=== PATIENT | female | born 1980 | race Caucasian/White ===

== ENCOUNTER 2016-11-07 09:10 | Emergency (ER) | payer OTHER ==
[2016-11-07 09:34] VITALS: BP 114/71
--- NOTE | 2016-11-07 09:58 | UC ---
Complaint Female HPI - HPI Summary HPI Summary: 36 y/o female presents to the urgent care c/o frequency on urination and a little bit of burning for the past week. Pt states mild pelvic discomfort. She took her temp yesterday and was 99.4F. She is concern since she had a Kidney infection 2 years ago. She wants to make sure she doesn't have a UTI. She also had some sensible nipples lately. Pt denies vaginal discharge, HX of STD's fever, SOB, chest pain, N/V/D. pelvic or abdominal pain. LMP: many years ago since she has a Pituitary tumor. "U. - History Of Current Complaint Chief Complaint: UCGU Stated Complaint: URINARY COMPLAINT Time Seen by Provider: 11/07/16 09:56 Hx Obtained From: Patient Hx Last Menstrual Period: "I don't get my period [pituitary tumor]." ?: No Onset/Duration: Gradual Onset, Lasting Days, Still Present Timing: Constant, Lasting Days Severity Initially: Mild Severity Currently: Mild Pain Intensity: 2 Pain Scale Used: 0-10 Numeric Character: Burning - mild with frequency on urination Associated Signs And Symptoms: Positive: Negative. Negative: Fever, Back Pain, Vaginal Bleeding/Discharge, Vaginal Discharge, Nausea, Vomiting(# Of Episodes =) , Genital Swelling, Genital Blisters - Risk Factors Ectopic Risk Factor: Negative Ovarian Torsion Risk Factor: Negative - Allergies/Home Medications Allergies/Adverse Reactions: Allergies Allergy/AdvReac Type Severity Reaction Status Date / Time No Known Allergies Allergy Verified 11/07/16 09:28 Home Medications: Home Medications Ascorbic Acid TAB* [Vitamin C TAB*] 1,000 mg PO DAILY PRN 11/07/16 [History Confirmed 11/07/16] Escitalopram Oxalate [Lexapro 10 mg] 10 mg PO DAILY 11/07/16 [History Confirmed 11/07/16] PMH/Surg Hx/FS Hx/Imm Hx Previously Healthy: Yes Other Endocrine History: Pitutary tumor - Surgical History Surgical History: Yes Surgery Procedure, Year, and Place: Appendectomy, ; Left Foot Fracture/Screw, ~ - Family History Known Family History: Positive: Hypertension, Diabetes Family History: thyroid problems - Social History Occupation: Employed Full-time Lives: With Family Alcohol Use: Occasionally Substance Use Type: None Smoking Status (MU): Heavy Every Day Tobacco Smoker Type: Cigarettes Amount Used/How Often: 1 PPD Length of Time of Smoking/Using Tobacco: Since Age 16 Review of Systems Constitutional: Negative Skin: Negative Eyes: Negative ENT: Negative Respiratory: Negative Cardiovascular: Negative Gastrointestinal: Negative Genitourinary: Dysuria, Frequency Motor: Negative Neurovascular: Negative Musculoskeletal: Negative Neurological: Negative Psychological: Negative All Other Systems Reviewed And Are Negative: Yes Physical Exam Triage Information Reviewed: Yes Appearance: Well-Appearing, No Pain Distress, Well-Nourished, Obese Vital Signs: Initial Vital Signs Temp 98.5 F 11/07/16 09:24 Pulse 86 11/07/16 09:24 Resp 16 11/07/16 09:24 BP 114/71 11/07/16 09:24 Pulse Ox 100 11/07/16 09:24 Vital Signs Reviewed: Yes Eye Exam: Normal Eyes: Positive: Conjunctiva Clear - PERRLA, EOMI fundi grossly normal ENT Exam: Normal ENT: Positive: Normal ENT inspection, Hearing grossly normal, Pharynx normal, TMs normal Dental Exam: Normal Neck exam: Normal Neck: Positive: Supple, Nontender, No Lymphadenopathy Respiratory Exam: Normal Respiratory: Positive: Chest non-tender, Lungs clear, Normal breath sounds Cardiovascular Exam: Normal Cardiovascular: Positive: RRR, No Murmur, Pulses Normal Abdominal Exam: Normal Abdomen Description: Positive: Nontender, No Organomegaly, Soft. Negative: CVA Tenderness (R), CVA Tenderness (L) Bowel Sounds: Positive: Present Musculoskeletal Exam: Normal Musculoskeletal: Positive: Strength Intact, ROM Intact, No Edema Neurological Exam: Normal Psychological Exam: Normal Skin Exam: Normal Complaint Female Dx - Course Course Of Treatment: 36 y/o female presents to the urgent care c/o frequency on urination and a little bit of burning for the past week. Pt states mild pelvic discomfort. She took her temp yesterday and was 99.4F. She is concern since she had a Kidney infection 2 years ago. She wants to make sure she doesn't have a UTI. She also had some sensible nipples lately. Pt denies vaginal discharge, HX of STD's fever, SOB, chest pain, N/V/D. pelvic or abdominal pain. LMP: many years ago since she has a Pituitary tumor.HX obtained. UA ordered, Result: negative, test: negative. PE: WNL. Pt Rx Pyridium PO to alleviate symptoms. Advised to increase fluid intake and if not resolution of symptoms to f/u with her PCP. Pt understood and agreed - Differential Dx/Diagnosis Differential Diagnosis/HQI/PQRI: Cervicitis, Pelvic Inflammatory Disease, , Renal Colic, Ureteral Stone, Urinary Tract Infection Provider Diagnoses: 1- Dysuria Discharge - Discharge Plan Condition: Stable Disposition: HOME Prescriptions: Phenazopyridine TAB* [Pyridium 100 mg TAB*] 100 mg PO TID #6 tab Patient Education Materials: Dysuria (ED) Referrals: Darius Franklin PA [Primary Care Provider] - If Needed Additional Instructions: 1- Please take the medication as directed if your urinary symptoms continue 2- Increase fluid intake or drink cranberry juice. If not improvement of symptoms please f/u with your PCP for further management.
== END 2016-11-07 10:15 | disposition home or self-care (01) ==
LOC: UCCORT 09:10
DX: R30.0 Dysuria (principal); Z32.02 Encounter for pregnancy test, result negative; F17.200 Nicotine dependence, unspecified, uncomplicated
CPT/HCPCS: 81003; 84702; 99202; G0463

== ENCOUNTER 2017-05-29 15:01 | Emergency (ER) | payer OTHER ==
[2017-05-29 15:35] VITALS: BP 121/74
--- NOTE | 2017-05-29 15:48 | UC ---
UC General HPI - HPI Summary HPI Summary: PT IS C/O LOW BACK ACHE, LOWER ABDOMINAL CRAMPING AND SOME DIARRHEA WHICH SHE DESCRIBES SOFT BM'S. PT ALSO C/O FREQUENT URINATION WITH DISCOMFORT AND URGENCY. SHE STATES HAS HAD INFECTION IN KIDNEY ONCE SO WANTS TO ENSURE NOT THAT. NO VAGINAL D/C, BLEEDING, CONCERN FOR PELVIC INFECTION OR . PT REPORTS FEELING WARM BUT DENIES FEVER. - History of Current Complaint Chief Complaint: UCGU Stated Complaint: URINARY W/BACK PAIN Time Seen by Provider: 05/29/17 15:40 Hx Obtained From: Patient Hx Last Menstrual Period: last week Onset/Duration: Gradual Onset, Other - "FEW DAYS AGO" Pain Intensity: 5 Aggravating: NOTHING Alleviating: NOTHING Associated Signs & Symptoms: Positive: Diarrhea, Dysuria. Negative: Abdominal Pain, Diaphoresis, Fever, Nausea, Vomiting - Allergy/Home Medications Allergies/Adverse Reactions: Allergies Allergy/AdvReac Type Severity Reaction Status Date / Time No Known Allergies Allergy Verified 05/29/17 15:29 PMH/Surg Hx/FS Hx/Imm Hx - Additional Past Medical History Additional PMH: pyelonephritis - Surgical History Surgical History: Yes Surgery Procedure, Year, and Place: Appendectomy, 2013, [place]; Left Foot Fracture/Screw, ~2001, [place] - Family History Known Family History: Positive: Hypertension, Diabetes Family History: thyroid problems - Social History Lives: With Family Alcohol Use: Occasionally Substance Use Type: None Smoking Status (MU): Heavy Every Day Tobacco Smoker Type: Cigarettes Amount Used/How Often: 1 PPD Length of Time of Smoking/Using Tobacco: Since Age 16 - Immunization History Vaccination Up to Date: Yes Review of Systems Constitutional: Negative Skin: Negative Eyes: Negative ENT: Negative Respiratory: Negative Cardiovascular: Negative Gastrointestinal: Diarrhea Genitourinary: Dysuria, Frequency, Urgency Motor: Negative Neurovascular: Negative Musculoskeletal: Negative Neurological: Negative Psychological: Negative Is Patient Immunocompromised?: No All Other Systems Reviewed And Are Negative: Yes Physical Exam Triage Information Reviewed: Yes Appearance: Well-Appearing Vital Signs: Initial Vital Signs Temp 97.7 F 05/29/17 15:30 Pulse 86 05/29/17 15:30 Resp 16 05/29/17 15:30 BP 121/74 05/29/17 15:30 Pulse Ox 100 05/29/17 15:30 Vital Signs Reviewed: Yes Eyes: Positive: Conjunctiva Clear ENT: Positive: Pharynx normal, TMs normal. Negative: Nasal congestion, Nasal drainage Neck: Positive: Supple, Nontender, No Lymphadenopathy Respiratory: Positive: Lungs clear, Normal breath sounds Cardiovascular: Positive: RRR, No Murmur, Pulses Normal Abdomen Description: Positive: Nontender, No Organomegaly, Soft. Negative: CVA Tenderness (R), CVA Tenderness (L), Distended, Guarding Bowel Sounds: Positive: Present Neurological: Positive: Alert Psychological: Positive: Age Appropriate Behavior Skin Exam: Normal Diagnostics - Laboratory Diagnostic Studies Completed/Ordered: U/A=UNREMARKABLE. HCG=NEGATIVE Course/Dx - Course Course Of Treatment: NON TOXIC PT. NO ACUTE ABDOMEN. U/A=UNREMARKABLE BUT CULTURE SENT GIVEN PT S/S'S. NOTHING TO SUGGEST IBD OR DIVERTICULITIS. WILL TX FOR POSSIBLE UTI. NEED FOR CLOSE F/U PCP STRESSED. PT AGREES TO GO TO ER FOR ANY CHANGE OR WORSENING. - Differential Dx - Multi-Symptom Provider Diagnoses: DYSURIA, ABDOMINAL CRAMPING-LOWER, DIARRHEA Discharge - Discharge Plan Condition: Stable Disposition: HOME Patient Education Materials: Dysuria (ED), Abdominal Pain (ED), Acute Diarrhea (ED) Referrals: Darius Franklin PA [Primary Care Provider] - 3 Days
== END 2017-05-29 16:26 | disposition home or self-care (01) ==
LOC: UCCORT 15:01
DX: R30.0 Dysuria (principal); R10.31 Right lower quadrant pain; R19.7 Diarrhea, unspecified; Z32.02 Encounter for pregnancy test, result negative; F17.210 Nicotine dependence, cigarettes, uncomplicated
CPT/HCPCS: 81003; 84702; 87077; 87086; 99212; G0463